=== PATIENT | male | born 1985 | race Caucasian/White ===

== ENCOUNTER 2017-03-03 10:47 | Emergency (ER) | payer OTHER ==
[~2017-03-03] VITALS: Ht 157.5 cm; Wt 44.6 kg
[~2017-03-03 10:47] MED LIST: CARB15DR50 BOTH EARS; LORA1TAB PO; ONDA4TAB35 PO
[2017-03-03 10:49] VITALS: Ht 157.5 cm; Wt 44.6 kg
--- NOTE | 2017-03-03 11:57 | ERD ---
ER Documentation Chief Complaint Chief Complaint Complains of bilateral ear pain HPI This 31-year-old male presents with bilateral ear congestion. He has a history of cerumen and is requesting evaluation for cerumen removal. Denies any bleeding or discharge, cough, shortness breath or chest pain. ROS All systems reviewed and are negative except as per history of present illness. Medications Home Meds Active Scripts Carbamide Peroxide* (Debrox*) 6.5% - 15 Ml Drops, 10 DROP BOTH EARS BID, #1 BOTTLE Prov:PERRY BRAND 04/23/16 Ondansetron Hcl* (Zofran* ODT) 4 mg -ODT Tab.disper, 4 MG PO Q6 Y for NAUSEA AND /OR VOMITING, #20 TAB Prov:ZACARIAS SAGE PA-C 01/18/15 Lorazepam* (Lorazepam*) 1 Mg Tablet, 1 MG PO Q8, #10 TAB Prov:SARAH ANTUNEZ 01/04/15 Allergies Allergies: Coded Allergies: aspirin (Verified Allergy, Unknown, 01/16/15) PMhx/Soc History of Surgery: Yes (r arm, left jaw, L eye) Anesthesia Reaction: No Hx Neurological Disorder: No Hx Respiratory Disorders: No Hx Cardiac Disorders: No Hx Psychiatric Problems: Yes (ANXIETY, PANIC ATTACKS) Hx Miscellaneous Medical Probl: No Hx Alcohol Use: No Hx Substance Use: No Hx Tobacco Use: No Smoking Status: Never smoker Physical Exam Vitals Vital Signs Date Time Temp Pulse Resp B/P Pulse Ox O2 Delivery O2 Flow Rate FiO2 03/03/17 10:49 98.4 91 20 135/75 98 Physical Exam Const: [] Alert, not ill-appearing. Head: Atraumatic Eyes: Normal Conjunctiva ENT: Normal External Ears, Nose and Mouth. TMs occluded bilaterally with cerumen. No mastoid tenderness. No pain with movement of the ears. Neck: Full range of motion..~ No meningismus. Resp: Clear to auscultation bilaterally Cardio: Regular rate and rhythm, no murmurs Abd: Soft, non tender, non distended. Normal bowel sounds Skin: No petechiae or rashes Back: No midline or flank tenderness Ext: No cyanosis, or edema Neur: Awake and alert Psych: Normal Mood and Affect Procedures/MDM Bilateral ear lavage was performed. TMs are normal after lavage. Patient presents with cerumen impaction treated here in the ED without evidence of mastoiditis, TM perforation, additional emergent causes of presenting complaints. He is advised to follow-up with primary care doctor or return to ER for new or worsening symptoms. Departure Diagnosis: Primary Impression: Cerumen impaction Laterality: bilateral Qualified Code: H61.23 - Bilateral impacted cerumen Condition: Stable Patient Instructions: Cerumen Impaction, Home Care Additional Instructions: Recheck for new or worsening symptoms with primary care doctor. KESHAV LAGOS MD Mar 03, 2017 11:57
== END 2017-03-03 12:05 | disposition home or self-care (01) ==
LOC: FTE 10:47
DX: H61.23 Impacted cerumen, bilateral (principal)
CPT/HCPCS: 69209; Z7502

== ENCOUNTER 2017-07-17 09:36 | Emergency (ER) | END 2017-07-17 10:20 | disposition home or self-care (01) ==

== ENCOUNTER 2018-01-01 07:55 | Emergency (ER) | END 2018-01-01 09:18 | disposition home or self-care (01) ==

== ENCOUNTER 2018-11-02 18:29 | Emergency (ER) | payer OTHER ==
[~2018-11-02] VITALS: Ht 172.7 cm; Wt 52.6 kg
[~2018-11-02 18:29] MED LIST changes: +CETI10CA PO; +IBUP-1542 PO; +MUPI22OI2 TOP; +PSEU120T12 PO
[2018-11-02 18:32] VITALS: Ht 172.7 cm; Wt 52.6 kg
--- NOTE | 2018-11-02 20:10 | ERD ---
ER Documentation Chief Complaint Chief Complaint L FOOT PAIN/ SWELLING S/P TRIPPING HPI 32-year-old male, with history of anxiety, presents the emergency department, complaining of left midfoot pain after a forced inversion of the foot that a occurred this morning. The pain is dull, constant, 6/10, worsened by amb ulation and deep pressure. The patient denies distal weakness, numbness or tingling. ROS All systems reviewed and are negative except as per history of present illness. Medications Home Meds Active Scripts Acetaminophen* (Tylenol*) 325 Mg Tablet, 2 TAB PO Q6 PRN for PAIN AND OR ELEVATED TEMP, #20 TAB Prov:ADELINA BADILLO MD 11/02/18 Carbamide Peroxide* (Debrox*) 6.5% - 15 Ml Drops, 10 DROP BOTH EARS BID, #1 BOTTLE Prov:CONY AGUILAR PA-C 01/01/18 Ibuprofen* (Motrin*) 600 Mg Tab, 600 MG PO Q6, #30 TAB Prov:BETTYE LOYD PA-C 07/17/17 Pseudoephedrine Hcl (Sudafed 12 Hour) 120 Mg Tablet.sa, 120 MG PO BID, #6 Prov:BETTYE LOYD PA-C 07/17/17 Cetirizine Hcl* (Zyrtec*) 10 Mg Capsule, 10 MG PO DAILY, #10 TAB.CHEW Prov:BETTYE LOYD PA-C 07/17/17 Mupirocin* (Bactroban*) 2% -22 Gram Oint...g., 1 APPLIC TOP BID for 7 Days, EA Prov:BETTYE LOYD PA-C 07/17/17 Carbamide Peroxide* (Debrox*) 6.5% - 15 Ml Drops, 10 DROP BOTH EARS BID, #1 BOTTLE Prov:PERRY BRAND DO 04/23/16 Ondansetron Hcl* (Zofran* ODT) 4 mg -ODT Tab.disper, 4 MG PO Q6 PRN for NAUSEA AND/OR VOMITING, #20 TAB Prov:ZACARIAS SAGE PA-C 01/18/15 Lorazepam* (Lorazepam*) 1 Mg Tablet, 1 MG PO Q8, #10 TAB Prov:SARAH ANTUNEZ 01/04/15 Allergies Allergies: Coded Allergies: Penicillins (Verified Allergy, Unknown, 7/6/19) aspirin (Verified Allergy, Unknown, 01/01/18) PMhx/Soc History of Surgery: Yes (r arm, left jaw, L eye) Anesthesia Reaction: No Hx Neurological Disorder: No Hx Respiratory Disorders: No Hx Cardiac Disorders: No Hx Psychiatric Problems: Yes (ANXIETY, PANIC ATTACKS) Hx Miscellaneous Medical Probl: No Hx Alcohol Use: No Hx Substance Use: No Hx Tobacco Use: No Smoking Status: Never smoker FmHx Family History: No diabetes, No coronary disease Physical Exam Vitals Vital Signs Date Temp Pulse Resp B/P (MAP) Pulse Ox O2 O2 Flow FiO2 Time Delivery Rate 11/02/18 97.4 85 16 116/74 96 Room Air 21:51 (88) 11/02/18 98.2 83 18 126/67 99 18:32 (86) Physical Exam Const: No acute distress Head: Atraumatic Eyes: Normal Conjunctiva ENT: Normal External Ears, Nose and Mouth. Neck: Full range of motion. No meningismus. Resp: Clear to auscultation bilaterally Cardio: Regular rate and rhythm, no murmurs Abd: Soft, non tender, non distended. Normal bowel sounds Skin: No petechiae or rashes Back: No midline or flank tenderness Ext: Left foot: Lateral midfoot edema, ecchymosis and tenderness to palpation. Distal neurovascular exam intact Neur: Awake and alert Psych: Normal Mood and Affect Results 24 hrs Patient: JOSE SPRINGER : 1985 Age: 32 Sex: M MR #: [id number] DOS: 11/02/182006 Ordering MD: ADELINA BADILLO MD Location: [facility] Room/Bed: PROCEDURE: XR Left Foot CLINICAL INDICATION: Forced inversion TECHNIQUE: AP, oblique, and lateral radiographs were submitted. COMPARISON: None FINDINGS: Osseous structures: There is an oblique fracture through the distal third of the shaft of the left fifth metatarsal in which the distal fragment is displaced dorsally by 2 mm. The remaining osseous elements appear intact. Joint spaces: are well maintained, with no significant spurring, erosion or joint effusion evident. Soft tissues: appear unremarkable. IMPRESSION: 1. Oblique fracture involving the distal third of the left fifth metatarsal shaft with the distal fragment displaced dorsally by approximately 2 mm. 2. Otherwise, unremarkable left foot series. Physician Eusebio Date Time Procedures/MDM Differential diagnosis considered include but not limited are: sprain/strain, ligament injury, fracture, dislocation, low suspicion for acute infectious process. Soft compartments, neurovascular exam grossly intact. Physical examination and clinical presentation consistent with left metatarsal fracture. During the ED course the patient received treatment with short leg posterior splint and crutches presenting overall improvement of the symptoms. Splint evaluation: Type: Short leg posterior Location: Left lower extremity Position: good alignment in anatomical position Neurovascular intact Results and clinical impression discussed with patient who agrees with management. The patient is stable to be treated outpatient and will be discharged home with recommendations for Ortho evaluation STEVIE, meanwhile, ice, rest and partial immobilization. NSAIDs 3 times daily for 5 days and close monitoring. The patient was instructed to follow up with the primary care provider in the next 48h. If symptoms persist, worsen or new symptoms develop, then patient should return to the ED immediately. Instructions explained and given to patient with acknowledgment and demonstrated understanding. Disclaimer: Inadvertent spelling and grammatical errors are likely due to EHR/dictation software use and do not reflect on the overall quality of patient care. Also, please note that the electronic time recorded on this note does not necessarily reflect the actual time of the patient encounter. Departure Diagnosis: Primary Impression: Fracture of fifth metatarsal bone of left foot Condition: Stable Additional Instructions: Thank you very much for allowing us to participate in your care. Your health and safety is our top priority at [facility]. The evaluation in the emergency department has been done to rule out an acute emergency. Chronic, [id number] conditions may have not been evaluated; therefore, you need to follow up with a primary care provider in the next 48h. If symptoms persist, worsen or new symptoms develop, then patient should return to the ED immediately. Call your primary care doctor TOMORROW for an appointment during the next 2-4 days and bring all the information provided. Have prescriptions filled and follow precisely the directions on the label. If the symptoms get worse and your provider is unavailable, return to the Emergency Department immediately. ADELINA BADILLO MD Nov 02, 2018 20:10
[2018-11-02] MEDS ORDERED: ACET325T33 PO (21:26)
[2018-11-02 21:51] VITALS: BP 116/74; PULSE 85; RESP 16
== END 2018-11-02 21:47 | disposition home or self-care (01) ==
LOC: FTE 18:29
DX: S92.352A Displaced fracture of fifth metatarsal bone, left foot, initial encounter for closed fracture (principal); X50.1XXA Overexertion from prolonged static or awkward postures, initial encounter; Y92.9 Unspecified place or not applicable
CPT/HCPCS: 73630; Z7502